=== PATIENT | female | born 1955 | race Caucasian/White ===

== ENCOUNTER 2025-03-29 01:24 | Day surgery (SDC) | payer MEDICARE, MEDICAID, SELFPAY ==
[2025-03-15 15:56] VITALS: BMI 34.5
--- NOTE | 2025-03-15 16:27 | PC.NURSE ---
Spoke with _PATIENT regarding medication _ELIQUIS. PATIENT_verbalizes understanding that the last dose is to be taken on _03/26/2025_ and the Endoscopist will instruct them when to restart after the procedure.
--- OUTSIDE RECORDS SUMMARY | 2025-03-29 01:26 | XMS_ITS ---
Author Organization [facility] Address [address] [place] [address] Care Team Providers Care Diesel Service Apprentice Name Role Phone Blaise Santa MD Primary Care Provider [phone] Mayo Cole MD Unavailable [phone] Dialysis Access Sites Type Status Location Placement Date Removal Da te Hemodialysis Cath Double 09/28/23 Inactive 09/28/2023 05/07/2024 Hemodialysis Cath Triple 09/15/23 Left Internal Jugular Inactive Left Neck (side) - Anterior 09/15/2023 09/30/2023 Procedures Procedure Name Priority Date/Time Associated Diagnosis Comments US TAMMI Schedule Routine, Read Routine (OP Routine) 03/26/2025 11:17 AM CDT Atherosclerosis of [place] arteries of extremities with intermittent claudication, bilateral legs TRANSTHORACIC ECHO (TTE) COMPLETE W DOPPLER/CF WO CONTRAST Routine 03/26/2025 10:10 AM CDT Paroxysmal atrial fibrillation (HCC) EGFR Routine 03/26/2025 9:05 AM CDT Paroxysmal atrial fibrillation (HCC) T4, FREE Routine 03/26/2025 9:05 AM CDT Paroxysmal atrial fibrillation (HCC) DIFFERENTIAL AUTO Routine 03/26/2025 9:0 5 AM CDT Paroxysmal atrial fibrillation (HCC) THYROID FUNCTION CASCADE Routine 03/26/2025 9:05 AM CDT Paroxysmal atrial fibrillation (HCC) CBC WITH AUTO DIFFERENTIAL Routine 03/26/2025 9:05 AM CDT Paroxysmal atrial fibrillation (HCC) BASIC METABOLIC PANEL Routine 03/26/2025 9:05 AM CDT Paroxysmal atrial fibrillation (HCC) HEPATITIS PANEL, ACUTE Routine 09/21/2023 12:52 PM GEOLOGICAL TECHNICAL OFFICER from Last 3 Months or Most Recently Relevant to Health Maintenance Allergies Active Allergy Reactions Criticality Noted Date Comments Atorvastatin Vomiting Low 11/12/2023 Lisinopril Cough Low 06/19/2024 Morphine Nausea & Vomiting Low 07/19/2023 Sulfa (Sulfonamide Antibiotics) Rash Medium Medications acetaminophen (TYLENOL) 325 mg tablet Take 2 tablets (650 mg total) by mouth every 6 (six) hours as needed for fever 30 tablet 05/10/20 24 Active apixaban (ELIQUIS) 5 mg tabletIndicatio ns:cerebral ischemia Take 1 tablet (5 mg total) by mouth 2 (two) times a day 60 tablet 11 07/11/20 24 Active amiodarone (PACERONE) 100 mg tabletIndicatio ns:Cardioversio n of Atrial Fibrillation Take 1 tablet (100 mg total) by mouth 2 (two) times a day 60 tablet 11 10/09/19 25 026 Active benzonatate (TESSALON) 100 mg capsuleIndicati ons:Cough Take 1 capsule (100 mg total) by mouth 3 (three) times a day as needed for cough 20 capsule 1 10/09/19 25 Active rOPINIRole (REQUIP) 0.25 mg tablet Take 1 tablet (0.25 mg total) by mouth nightly 30 tablet 10/09/19 25 026 Active Additional Information Patient not taking.Reported on 03/20/2025 furosemide (LASIX) 40 mg tablet Take 1 tablet (40 mg total) by mouth daily 90 tablet 3 12/13/19 25 Active rosuvastatin (CRESTOR) 40 mg tablet Take 1 tablet (40 mg total) by mouth daily 90 tablet 3 12/14/[address] (PROTONIX) 40 mg EC tabletIndicatio ns:Mucositis Prophylaxis Take 1 tablet (40 mg total) by mouth 2 (two) times a day 180 tablet 3 12/14/19 25 026 Active nitroglycerin (NITROSTAT) 0.[address] 1 tablet (0.4 mg total) under the tongue every 5 (five) minutes as needed for chest pain 24 tablet 1 12/14/19 25 Active metoprolol tartrate (LOPRESSOR) 25 mg immediate release tablet Take 0.5 tablets (12.5 mg total) by mouth 2 (two) times a day 45 tablet 3 12/14/19 25 026 Active losartan (COZAAR) 100 mg tablet Take 1 tablet (100 mg total) by mouth daily 90 tablet 3 12/14/19 25 Active alirocumab 75 mg/mL pen injector Inject 75 mg under the skin every 14 (fourteen) days 2 mL 11 12/14/19 25 Active ezetimibe (ZETIA) 10 mg tablet Take 1 tablet (10 mg total) by mouth daily 90 tablet 3 12/14/19 25 025 Discontinued evolocumab (Repatha SureClick) 140 mg/mL pen injector Inject 1 mL (140 mg total) under the skin every 2 (two) weeks 2 mL 11 01/02/20 25 025 Discontinued Active Problems Patient Care Coordination No te Formatting of this note migh t be different from the original. , and the of the nose to do due to return to 9 going to fail Problem Noted Date Diagnosed Date SOB (shortness of breath) 10/07/2024 PAF (paroxysmal atrial fibrillation) 10/07/2024 Positive D dimer 10/07/2024 Elevated serum creatinine 10/07/2024 Primary hypertension 10/07/2024 Anemia 10/07/2024 RLS (restless legs syndrome) 10/07/2024 Acute cough 10/06/2024 PAD (peripheral artery disease) 09/19/2024 Transient ischemic attack (TIA) 05/08/2024 Chest pain 05/07/2024 H/O aortic valve replacement 11/02/2023 H/O mitral valve replacement 11/02/2023 Hx of CABG 11/02/2023 Mixed hyperlipidemia 11/02/2023 Cardiac decompensation 09/30/2023 Moderate protein-calorie malnutrition 09/29/2023 Persistent atrial fibrillation 09/25/2023 Atherosclerosis of [place] of right lower extremity with rest pain 09/22/2023 BEKAH (acute kidney injury) 09/14/2023 Aortic valve stenosis, etiol ogy of cardiac valve disease unspecified 09/13/2023 Coronary artery disease of n ative heart with stable angina pectoris 08/31/2023 Aortic stenosis, severe 07/22/2023 Coronary artery disease invo lving [place] coronary artery of [place] heart without angina pectoris 07/21/2023 Pulmonary hypertension 07/20/2023 Atrial flutter with rapid ventricular response 1 09/19/2022 Aortic valve stenosis 07/19/2023 Social History Tobacco Use Types Packs/Day Years Used Date Smoking Tobacco: Never Smokeless Tobacco: Never Tobacco Cessation:Counseling Given: Not Answered [facility] Utilities Answer Date Recorded In the past 12 months has [employer], oil, or water Coinset[employer] threatened to shut off services in your home? No 10/09/2024 Social Connection and Isolation Panel Answer Date Recorded In a typical week, how many times do you talk on the phone with family, friends, or neighbors? More than three times a week 10/09/2024 How often do you get togethe r with friends or relatives? More than three times a week 10/09/2024 How often do you attend chur ch or sikh services? Never 10/09/2024 Do you belong to any clubs o r organizations such as hoahaoism groups, unions, fraternal or athletic groups, or school groups? No 10/09/2024 How often do you attend meet ings of the clubs or organizations you belong to? Never 10/09/2024 Are you , , di vorced, , never , or living with a partner? Living with partner 10/09/2024 AUDIT-C Answer Date Recorded Frequency of Alcohol Consumption Not on file 10/07/2024 Q2: How many drinks containi ng alcohol do you have on a typical day when you are drinking? Patient does not drink Frequency of Binge Drinking Not on file 09/17 Overall Financial Resource Strain (CARDIA) Answe r Date Recorded How hard is it for you to pa y for the very basics like food, housing, medical care, and heating? Not hard at all 10/09/2024 PHQ-2 Answer Date Recorded PHQ-2 Total Score (If total score is 3 or more points, staff should administer the PHQ-9) 0 10/06/2024 [facility] Occupat ional [facility] - Occupational Stress Questionnaire Answer Date Recorded Do you feel stress - tense, restless, nervous, or anxious, or unable to sleep at night because your mind is troubled all the time - these days? To some extent 10/01/2023 Hunger Vital Sign Answer Date Recorded Within the past 12 months, y ou worried that your food would run out before you got the money to buy more. Never true 10/09/19 25 Within the past 12 months, t he food you bought just didn't last and you didn't have money to get more. Never true 10/09/2024 PRAPARE - Transportation Answer Date Re corded In the past 12 months, has l ack of transportation kept you from medical appointments or from getting medications? No 09/17 In the past 12 months, has l ack of transportation kept you from meetings, work, or from getting things needed for daily living? No 10/09/2024 Housing Stability Vital Sign Answer Artur e Recorded In the last 12 months, was t here a time when you were not able to pay the mortgage or rent on time? Yes 10/01/2023 In the last 12 months, how many places have you lived? 1 10/01/2023 In the last 12 months, was t here a time when you did not have a steady place to sleep or slept in a detention (including now)? No 10/01/2023 PHQ-9 Answer Date Recorded PHQ-9 Total Score 10 10/06/2024 Housing Stability Vital Sign Answer Artur e Recorded In the last 12 months, was t here a time when you were not able to pay the mortgage or rent on time? No 10/09/2024 In the past 12 months, how m any times have you moved where you were living? 1 10/09/2024 At any time in the past 12 m onths, were you homeless or living in a detention (including now)? No 10/09/2024 Personal Safety Answer Date Recorded Have you ever been in or are you currently in a harmful physical or emotional relationship or is someone making you feel afraid or unsafe? Denies 10/06/2024 Comments No Sex and Gender Information Value Date Recorded Sex Assigned at Not on file Legal Sex Female 7:27 PM GEOLOGICAL TECHNICAL OFFICER Gender Identity Not on file Sexual Orientation Not on file Last Filed Vital Signs Vital Sign Reading Time Taken Comments Blood Pressure 126/80 03/20/2025 2:51 PM CDT Pulse 59 03/20/2025 2:51 PM CDT Temperature 36.7 C (98.1 F) 10/09/2024 12:06 PM GEOLOGICAL TECHNICAL OFFICER Respiratory Rate 12 03/20/2025 2:51 PM CDT Oxygen Saturation 94% 10/09/2024 12: 06 PM GEOLOGICAL TECHNICAL OFFICER Inhaled Oxygen Concentration - - Weight 100.6 kg (221 lb 12.8 oz) 03/20/2025 2:51 PM CDT Height 170.2 cm (5' 7) 03/20/2025 2:51 PM CDT Body Mass Index 34.74 03/20/2025 2:51 PM CDT Results * US TAMMI (03/26/2025 11:17 AM CDT) Anatomical Region Laterality Modality Vascular N/A Ultrasound 03/26/2025 11:0 1 AM CDT Narrative 03/26/2025 1:23 PM CDT [address] [address] Ankle Brachial Index Report Patient Name: MILA ROSARIO : 1955 (69y 9m) Gender: F Study Date: 03/26/2025 11:01:00 [facility] Administrator: Daniela Provider: KEVIN TAYLOR Quality: Adequate Ref Provider: KEVIN TAYLOR PROCEDURES: Arterial Report: A bilateral extremities ankle/brachial index was performed. INDICATIONS: I70.213 Atherosclerosis of [place] arteries of extremities with intermittent claudication, bilateral legs. CONCLUSIONS: 1. No Arterial insufficiency at rest in either lower extremity with ankle- brachial index of 1.15 on the right and 1.04 on the left. 2. Biphasic to triphasic waveform at the ankle bilaterally. FINDINGS: Electronically Signed By: Kevin Taylor MD 03/26/2025 1:18:59 PM CDT Procedure Note Kevin Taylor MD - 03/26/[address] [address] Ankle Brachial Index Report Patient Name: MILA ROSARIO : 1955 (69y 9m) Gender: F Study Date: 03/26/2025 11:01:00 AM [facility] Administrator: Daniela Provider: KEVIN TAYLOR Quality: Adequate Ref Provider: KEVIN TAYLOR PROCEDURES: Arterial Report: A bilateral extremities ankle/brachial index wasperformed. INDICATIONS: I70.213 Atherosclerosis of [place] arteries of extremities withintermittent claudication, bilateral legs. CONCLUSIONS: 1. No Arterial insufficiency at rest in either lower extremity withankle- brachial index of 1.15 on the right and 1.04 on the left. 2. Biphasic to triphasic waveform at the ankle bilaterally. FINDINGS: Electronically Signed By: Kevin Taylor MD 03/26/2025 1:18:59 PM CDT us Kevin Taylor MD IMG US PROCEDURES Final Result * TRANSTHORACIC ECHO (TTE) COMPLETE W DOPPLER/CF WO CONTRAST (03/26/2025 10:10 AM CDT) Estimated EF 60-65 % CONS SCIMAGE Anatomical Region Laterality Modality Ultrasound 03/26/2025 9:43 AM CDT Narrative 03/26/2025 2:24 PM CDT [address] [address] Echocardiogram Report Patient Name: MILA ROSARIO : 1955 Study Date: 03/26/2025 9:43:25 AM Gender: F Tech: AA Location: echo room 2 Ref Provider: KEVIN TAYLOR Height(Cm): BSA: Weight(Kg): Quality: Good Order Provider: KEVIN TAYLOR PROCEDURES: Echocardiographic Report: Transthoracic echocardiogram with complete 2D, M-Mode, and color Doppler examination. INDICATIONS: afib, 23mm inspiris avreplace, 29mm epic porcine mvreplace and I48.0 Paroxysmal atrial fibrillation. MEASUREMENTS: 2D/MM Value Range Doppler Value Range Estimated EF 60-65 % MARTA Vmax 2.64 cm2 AV Mean PG 11 mmHg AV Peak Dave 2.19 m/s [ 1.00 - 1.70 ] AV VTI 41.83 cm LVOT Diam 2.29 cm LVOT Peak Dave 1.41 m/s [ 0.70 - 1.10 ] LVOT VTI 30.52 cm MV E Peak Dave 1.40 m/s [ 0.60 - 1.30 ] MV A Peak Dave 1.31 m/s [ 1.00 - 1.20 ] MV Mean PG 4 mmHg MV PHT 110 msec [ 20 - 100 ] MVA 1.80 MV Decel Time 379 msec [ 104 - 258 ] PV Peak Dave 0.94 m/s [ 0.40 - 0.80 ] TR Peak Dave 2.45 m/s [ 1.00 - 2.80 ] TR Peak PG 24 mmHg RVSP 29.00 mmHg [ 10.00 - 36.00 ] E` 0.02 m/s E/E` 57.58 [ <= 10.00 ] PA Pressure 5.00 mmHg [ 10.00 - 36.00 ] 2D/MM Value Range Doppler Value Range - FINDINGS: Atrial Septum: Normal atrial septum. Left Ventricle: Normal left ventricular systolic function with no focal wall motion abnormalities. Normal left ventricular size. Mild concentric left ventricular hypertrophy. Normal left ventricular diastolic function. Ejection Fraction is estimated to be 60-65 %. Left Atrium: There is mild enlargement of left atrium. Right Ventricle: Normal right ventricular size. Normal right ventricular systolic function. Right Atrium: The right atrium is normal in size. Aortic Valve: No evidence of hemodynamically significant aortic stenosis by Doppler. Gradients normal for valve type and size. Normal appearing aortic valve bioprosthesis. Mitral Valve: Trivial regurgitation of the mitral valve. Normal appearing mitral valve prosthesis for valve type and size. Normal gradients for valve type and size. Pulmonic Valve: Pulmonic valve not well visualized. No evidence of pulmonic regurgitation. Tricuspid Valve: Normal structure of the tricuspid valve. Moderate pulmonary hypertension based on right ventricular systolic pressure. Estimated peak RVSP is 57 mmHg. Mild tricuspid regurgitation. Pericardium: Normal pericardium with no significant pericardial effusion. Aorta: Normal aortic root. Sinus of Valsalva is normal. Aortic arch is normal. Descending aorta is normal. IVC: Normal size and normal respiratory collapse consistent with normal right atrial pressure (<5 mmHg). Pulmonary Artery: Pulmonary artery not well visualized. CONCLUSIONS: Normal left ventricular systolic function with no focal wall motion abnormalities. Normal left ventricular size. Mild concentric left ventricular hypertrophy. Normal left ventricular diastolic function. Ejection Fraction is estimated to be 60-65 %. Normal right ventricular size. Normal right ventricular systolic function. There is mild enlargement of left atrium. Trivial regurgitation of the mitral valve. Normal appearing mitral valve prosthesis for valve type and size. Normal gradients for valve type and size. No evidence of hemodynamically significant aortic stenosis by Doppler. Gradients normal for valve type and size. Normal appearing aortic valve bioprosthesis. Normal structure of the tricuspid valve. Moderate pulmonary hypertension based on right ventricular systolic pressure. Estimated peak RVSP is 57 mmHg. Mild tricuspid regurgitation. Normal pericardium with no significant pericardial effusion. Technically difficult study with limited views and visualization. Valves in general are very poorly visualized. Electronically Signed By: Riri Ayala MD 03/26/2025 2:24:16 PM CDT Procedure Note Riri Ayala MD - 03/26/[address] [address] Echocardiogram Report Patient Name: MILA ROSARIO : 1955 Study Date: 03/26/2025 9:43:25 AM Gender: F Tech: Location: echo room 2 Ref Provider: KEVIN TAYLOR Height(Cm): BSA: Weight(Kg): Quality: Good Order Provider: KEVIN TAYLOR PROCEDURES: Echocardiographic Report: Transthoracic echocardiogram with complete 2D, M-Mode, and color Dopplerexamination. INDICATIONS: afib, 23mm inspiris avreplace, 29mm epic porcine mvreplace and I48.0Paroxysmal atrial fibrillation. MEASUREMENTS: 2D/MM Value Range Doppler Value Range Estimated EF 60-65 % MARTA Vmax 2.64 cm2 AV Mean PG 11 mmHg AV Peak Dave 2.19 m/s [ 1.00 - 1.70 ] AV VTI 41.83 cm LVOT Diam 2.29 cm LVOT Peak Dave 1.41 m/s [ 0.70 - 1.10 ] LVOT VTI 30.52 cm MV E Peak Dave 1.40 m/s [ 0.60 - 1.30 ] MV A Peak Dave 1.31 m/s [ 1.00 - 1.20 ] MV Mean PG 4 mmHg MV PHT 110 msec [ 20 - 100 ] MVA 1.80 MV Decel Time 379 msec [ 104 - 258 ] PV Peak Dave 0.94 m/s [ 0.40 - 0.80 ] TR Peak Dave 2.45 m/s [ 1.00 - 2.80 ] TR Peak PG 24 mmHg RVSP 29.00 mmHg [ 10.00 - 36.00 ] E` 0.02 m/s E/E` 57.58 [ <= 10.00 ] PA Pressure 5.00 mmHg [ 10.00 - 36.00 ] 2D/MM Value Range Doppler Value Range - FINDINGS: Atrial Septum: Normal atrial septum. Left Ventricle: Normal left ventricular systolic function with no focal wall motionabnormalities. Normal left ventricular size. Mild concentric left ventricular hypertrophy.Normal left ventricular diastolic function. Ejection Fraction is estimated to be 60-65%. Left Atrium: There is mild enlargement of left atrium. Right Ventricle: Normal right ventricular size. Normal right ventricular systolicfunction. Right Atrium: The right atrium is normal in size. Aortic Valve: No evidence of hemodynamically significant aortic stenosis by Doppler.Gradients normal for valve type and size. Normal appearing aortic valve bioprosthesis. Mitral Valve: Trivial regurgitation of the mitral valve. Normal appearing mitral valveprosthesis for valve type and size. Normal gradients for valve type and size. Pulmonic Valve: Pulmonic valve not well visualized. No evidence of pulmonicregurgitation. Tricuspid Valve: Normal structure of the tricuspid valve. Moderate pulmonary hypertensionbased on right ventricular systolic pressure. Estimated peak RVSP is 57 mmHg. Mildtricuspid regurgitation. Pericardium: Normal pericardium with no significant pericardial effusion. Aorta: Normal aortic root. Sinus of Valsalva is normal. Aortic arch is normal.Descending aorta is normal. IVC: Normal size and normal respiratory collapse consistent with normal rightatrial pressure (<5 mmHg). Pulmonary Artery: Pulmonary artery not well visualized. CONCLUSIONS: Normal left ventricular systolic function with no focal wall motionabnormalities. Normal left ventricular size. Mild concentric left ventricular hypertrophy.Normal left ventricular diastolic function. Ejection Fraction is estimated to be 60-65%. Normal right ventricular size. Normal right ventricular systolicfunction. There is mild enlargement of left atrium. Trivial regurgitation of the mitral valve. Normal appearing mitral valveprosthesis for valve type and size. Normal gradients for valve type and size. No evidence of hemodynamically significant aortic stenosis by Doppler.Gradients normal for valve type and size. Normal appearing aortic valve bioprosthesis. Normal structure of the tricuspid valve. Moderate pulmonary hypertensionbased on right ventricular systolic pressure. Estimated peak RVSP is 57 mmHg. Mildtricuspid regurgitation. Normal pericardium with no significant pericardial effusion. Technically difficult study with limited views and visualization. Valvesin general are very poorly visualized. Electronically Signed By: Riri Ayala MD 03/26/2025 2:24:16 PM CDT us Kevin Taylor MD CV ECHO PROCEDURES Final Result * (ABNORMAL) eGFR (03/26/2025 9:05 AM CDT) eGFR 41(L) >=60 mL/min/1. 73 m2 Comment: Interpretive Data Reference Interval Normal >/= 90 mL/min/1.73m2 Mildly decreased* 60 - 89 mL/min/1.73m2 Mildly to moderately decreased 45 - 59 mL/min/1.73m2 Moderately to severely decreased 30 - 44 mL/min/1.73m2 Severely decreased 15 - 29 mL/min/1.73m2 Kidney Failure < 15 mL/min/1.73m2 *Relative to young adult level Estimated glomerular filtration rate is determined by the 2020 CKD-EPI equation recommended by the National Kidney Foundation (A Unifying Approach to GFR Estimation: Recommendations of the NKF-ASK Task Force on Reassessing the Inclusion of Race in Diagnosing Kidney Disease, JASN 202). The CKD-EPI equation should not be used for patients with unstable renal function and has not been validated in children and those over 70. Current interpretive data was last reviewed 2021. Blood 03/26/2025 9:05 AM CDT 03/26/2025 9:50 AM CDT us Alva Juana Datillo HAND II CUTTER LAB BLOOD ORDERABLES Fi nal Result [facility] ([place]) 1 [facility] Department [place] [address] * Differential, auto (03/26/2025 9:05 AM CDT) Neutrophil abs 5.10 1.50 - 6.50 K/cumm Imm gran abs 0.02 0.00 - 0.10 K/cumm [facility] ([place]) Lymphocyte abs 1.40 0.80 - 3.30 K/cumm [facility] ([place]) Monocyte abs 0.59 0.20 - 0.80 K/cumm [facility] ([place]) Eosinophil abs 0.09 0.00 - 0.50 K/cumm [facility] ([place]) Basophil abs 0.05 0.00 - 0.10 K/cumm [facility] ([place]) Neutrophil pct 70.4 % [facility] ([place]) Comment: Interpretive Data Percent cell count reference ranges are not reported, since discordance with absolute values may lead to misinterpretation of CBC data. Current Interpretive Data was last revised on 2017. Imm gran pct 0.3 % [facility] ([place]) Comment: Interpretive Data Percent cell count reference ranges are not reported, since discordance with absolute values may lead to misinterpretation of CBC data. Current Interpretive Data was last revised on 2017. Lymphocyte pct 19.3 % [facility] ([place]) Comment: Interpretive Data Percent cell count reference ranges are not reported, since discordance with absolute values may lead to misinterpretation of CBC data. Current Interpretive Data was last revised on 2017. Monocyte pct 8.1 % [facility] ([place]) Comment: Interpretive Data Percent cell count reference ranges are not reported, since discordance with absolute values may lead to misinterpretation of CBC data. Current Interpretive Data was last revised on 2017. Eosinophil pct 1.2 % [facility] ([place]) Comment: Interpretive Data Percent cell count reference ranges are not reported, since discordance with absolute values may lead to misinterpretation of CBC data. Current Interpretive Data was last revised on 2017. Basophil pct 0.7 % [facility] ([place]) Comment: Interpretive Data Percent cell count reference ranges are not reported, since discordance with absolute values may lead to misinterpretation of CBC data. Current Interpretive Data was last revised on 2017. Blood 03/26/2025 9:05 AM CDT 03/26/2025 9:31 AM CDT Alva Paul HAND II CUTTER LAB BLOOD ORDERABLES Fi nal Result Performing Organization Address City/[facility]/ZIP Co de Phone Number [facility] ([place]) 1 [facility] [place] [address] * (ABNORMAL) Thyroid Function Emery (03/26/2025 9:05 AM CDT) Pathologist [facility] TSH 4.59(H) 0.30 - 4.20 mcIUnit/mL [facility] ([place]) Blood 03/26/2025 9:05 AM CDT 03/26/2025 9:50 AM CDT Alva Paul HAND II CUTTER LAB BLOOD ORDERABLES Fi nal Result Performing Organization Address City/[facility] Co de Phone Number [facility] ([place]) 1 [facility] [place] [address] * CBC with auto differential (03/26/2025 9:05 AM CDT) Pathologist [facility] WBC 7.25 3.80 - 9.90 K/cumm Hgb 12.8 11.9 - 15.5 g/dL [facility] ([place]) Hct 39.5 35.6 - 45.5 % [facility] ([place]) Plt 164 150 - 400 K/cumm [facility] ([place]) MPV 11.4 9.1 - 12.3 fL [facility] ([place]) RBC 4.47 3.90 - 5.20 M/cumm [facility] ([place]) MCV 88.4 81.3 - 96.4 fL [facility] ([place]) MCH 28.6 27.1 - 33.3 pg [facility] ([place]) MCHC 32.4 32.3 - 35.7 g/dL [facility] ([place]) RDW CV 14.6 11.1 - 14.9 % [facility] ([place]) RDW SD 47.0 35.7 - 48.1 fL [facility] ([place]) NRBC abs 0.00 0.00 - 0.01 K/cumm [facility] ([place]) Blood 03/26/2025 9:05 AM CDT 03/26/2025 9:31 AM CDT Alva Paul HAND II CUTTER LAB BLOOD ORDERABLES Fi nal Result [facility] ([place]) 1 [facility] [place] [address] * T4, free (03/26/2025 9:05 AM CDT) Free T4 1.46 0.90 - 1.70 ng/dL [facility] ([place]) Blood 03/26/2025 9:05 AM CDT 03/26/2025 9:50 AM CDT Narrative [facility] ([place]) - 03/26/2025 11:17 AM CDT This test was reflexed from a TSH result. Alva Paul HAND II CUTTER LAB BLOOD ORDERABLES Fi nal Result [facility] ([place] [facility] [place] [address] * (ABNORMAL) Basic metabolic panel (03/26/2025 9:05 AM CDT) Sodium 141 135 - 145 mmol/L [facility] ([place] Potassium, pl 3.5 3.3 - 4.9 mmol/L [facility] Chloride 101 97 - 110 mmol/L [facility] ([place] CO2 26 22 - 32 mmol/L [facility] ([place]) Anion gap 14 2 - 15 mmol/L [facility] ([place]) BUN 19 6 - 25 mg/dL [facility] ([place]) Creatinine 1.39(H) 0.60 - 1.10 mg/dL [facility] ([place]) Glucose 83 70 - 199 mg/dL [facility] ([place]) Comment: Interpretive Data Fasting glucose >/= 126 mg/dl is diagnostic for diabetes. Fasting is defined as no caloric intake for at least 8 hours. Fasting glucose between 100 mg/dl to 125 mg/dl is diagnostic of prediabetes. In a patient with classic symptoms of hyperglycemia or hyperglycemic crisis, a random glucose >/= 200 mg/dl is diagnostic for diabetes. In the absence of unequivocal hyperglycemia, results should be confirmed by repeat testing. The classification and Diagnosis of Diabetes Diabetes Care 202; 46: S19-S40. Current interpretive data was last revised 2022. Calcium 9.7 8.5 - 10.3 mg/dL [facility] ([place]) Blood 03/26/2025 9:05 AM CDT 03/26/2025 9:50 AM CDT Alva Paul NP LAB BLOOD ORDERABLES nal Result [facility] ([place]) 1 [facility] Department [place] [address] * Hepatitis panel, acute Blood (09/21/2023 12:52 PM GEOLOGICAL TECHNICAL OFFICER) Hep A IgM Nonreactive Nonreactive [facility] Comment: Interpretive Data: If Hep A IgM Ab is reported as Equivocal, a new sample should be drawn in two weeks for testing. Current interpretive data was last revised on 19. Hep B core IgM Nonreactive Nonreactive [facility] Comment: Interpretive Data If HepB Core IgM Ab is reported as Equivocal, a new sample should be drawn in two weeks for testing. Current interpretive data was last revised on 19. Hep C Ab Nonreactive Nonreactive [facility] Comment: Interpretive Data Nonreactive: Antibodies to HCV not detected. Does NOT exclude the possibility of recent exposure to HCV. Equivocal: Equivocal for HCV antibodies. Supplemental molecular testing will be automatically performed to determine infection status in accordance with current CDC screening recommendations. Reactive: Positive for HCV antibodies. This may represent current or past HCV infection. Supplemental molecular testing will be automatically performed to determine current infection status in accordance with current CDC screening recommendations. Interpretive data was last revised on 2019. HepBsAg Nonreactive Nonreactive [facility] Blood 09/21/2023 12:5 2 PM GEOLOGICAL TECHNICAL OFFICER 09/21/2023 12:59 PM GEOLOGICAL TECHNICAL OFFICER Fred Warren MD LAB MICROBIOLOGY - GENERAL [facility]ERE[facility] Final Result [facility] [id number] [place] [address] from Last 3 Months or Most Recently Relevant to Health Maintenance
--- OUTSIDE RECORDS SUMMARY | 2025-03-29 01:26 | XMS_ITS | Encounter Summary ---
Author Organization [facility] Healthcare Address [address] [place] [address] Care Team Providers Care Crew Manager Name Role Phone Blaise Santa MD Primary Care Provider [phone] Mayo Cole MD Unavailable [phone] Encounter Details Date Type Department Care Team (Late st Contact Info) Description 03/26/2025 Results Follow-Up [place] Aquarium Specialist at [address] [place] [phone] Ketty Alvarez YaniraDODGE, MA US TAMMI Social History Tobacco Use Types Packs/Day Years Used Date Smoking Tobacco: Never Smokeless Tobacco: Never [facility] Utilities Answer Date Recorded In the past 12 months has [employer], gas, oil, or water [employer] threatened to shut off services in your [...] often do you attend chur ch or yazdanism services? Never 10/09/2024 Do you belong to [...] staff should administer the PHQ-9) 0 10/06/2024 [facility] Occupat ional [facility] - Occupational Stress Questionnaire Answer Date [...] place to sleep or slept in a skilled nursing (including now)? No 10/01/2023 PHQ-9 Answer Date [...] any time in the past 12 m [facility], were you homeless or living in a skilled nursing (including now)? No 10/09/2024 Personal Safety Answer Date Recorded Have you ever been in or are you currently in a harmful physical or emotional relationship or is someone making you feel afraid or unsafe? Denies 10/06/2024 Comments No Sex and Gender Information Value Date Recorded Sex Assigned at Not on file Legal Sex Female 7:27 PM PATIENT RELATIONS COORDINATOR Gender Identity Not on file Sexual Orientation Not on file documented as of this encounter Plan of Treatment Not on file documented as of this encounter Visit Diagnoses Not on filedocumented in this encounter Care Teams Crew Manager Relationship Specialty [place] [address] [place] [address] PCP - General Family Medicine 11/02/23 [place] [address] [place] [address] Surgeon Cardiothoracic Surgery 10/09/24 documented as of this encounter
--- OUTSIDE RECORDS SUMMARY | 2025-03-29 01:26 | XMS_ITS | Clinical Summary ---
Author Organization [facility] Address [address] [place] [address] Care Team Providers Care Boilermaker Loftsman Name Role Phone Blaise Santa MD Primary Care Provider [phone] Mayo Cole MD Unavailable [phone] Allergies Active Allergy Reactions Criticality Noted Date [...] skin every 2 (two) weeks 2 mL 01/02/20 25 025 Discontinued Active Problems Patient [...] 09/29/2023 Persistent atrial fibrillation 09/25/2023 Atherosclerosis of andreafski ar antony of right lower extremity with rest pain 09/22/2023 BEKAH (acute kidney injury) 09/14/2023 Aortic valve stenosis, etiol ogy of cardiac valve disease unspecified 09/13/2023 Coronary artery disease of n ative heart with stable angina pectoris 08/31/2023 Aortic stenosis, severe 07/22/2023 Coronary artery disease invo lving andreafski coronary artery of andreafski heart without angina pectoris 07/21/2023 Pulmonary hypertension 07/20/2023 Atrial flutter with rapid ventricular response 1 09/19/2022 Aortic valve stenosis 07/19/2023 Encounters Date Type Department Care Team Description 03/26/2025 9:00 AM CDT Lab [address] [address] Paroxysmal atrial fibrillation (HCC) 03/26/2025 8:53 AM CDT - 03/26/2025 11:59 PM CDT Hospital Encounter [facility] [address] [place] [address] [facility] Atherosclerosis of andreafski arteries of extremities with intermittent claudication, bilateral legs Discharge Disposition: Discharge to home or self care 03/26/2025 8:53 AM CDT - 03/26/2025 11:59 PM CDT Hospital Encounter [facility] 1 [place] [address] Paroxysmal atrial fibrillation (HCC) Discharge Disposition: Discharge to home or self care 03/26/2025 Results Follow-Up [place] Journeyman Level Acoustic Analyst at [address] [place] [phone] Ketty Alvarez MA TAMMI 03/20/2025 2:00 PM CDT Office Visit [place] [facility]st at [address] [place] [address] Alva Paul NP Paroxysmal atrial fibrillation (HCC) (Primary Dx); Hx of CABG; H/O mitral valve replacement; H/O aortic valve replacement; Mixed hyperlipidemia 01/11/2025 Telephone [facility] Specialty Services [address] [place] [phone] Miscellaneous, Not In File from Last 3 Months Surgical History Surgery Date Site/Laterality Comments CYST REMOVAL Left wrist PARTIAL HYSTERECTOMY TUNNELED LINE PLACEMENT > 5 YEARS 09/28/2023 N/A CORONARY ARTERY BYPASS GRAFT AORTIC VALVE REPLACEMENT MITRAL VALVE REPLACEMENT Medical History Medical History Date Comments Pulmonary hypertension (HCC) Atrial flutter (HCC) Aortic stenosis PONV (postoperative nausea and vomiting) CHF (congestive heart failure) (HCC) Hypertension Stroke (HCC) A-fib (HCC) Coronary artery disease Family History Medical History Relation Name Comments No Known Problems Other Relation Name Status Comments Other Social History Tobacco Use Types Packs/Day Years Used Date Smoking Tobacco: Never Smokeless Tobacco: Never Tobacco Cessation:Counseling Given: Not Answered [place] Utilities Answer Date Recorded In the past 12 months has [employer], gas, oil, or water [employer] threatened to shut off services in your [...] often do you attend chur ch or buddhist services? Never 10/09/2024 Do you belong to any clubs o r organizations such as zoroastrian groups, unions, fraternal or athletic groups, or [...] staff should administer the PHQ-9) 0 10/06/2024 [facility] Occupat [facility] - Occupational Stress Questionnaire Answer Date [...] place to sleep or slept in a nursing home (including now)? No 10/01/2023 PHQ-9 Answer Date [...] any time in the past [address] [facility], were you homeless or living in a nursing home (including now)? No 10/09/2024 Personal Safety Answer Date Recorded Have you ever been in or are you currently in a harmful physical or emotional relationship or is someone making you feel afraid or unsafe? Denies 10/06/2024 Comments No Sex and Gender Information Value Date Recorded Sex Assigned at Not on file Legal Sex Female 7:27 PM STITCH BONDER MACHINE OPERATOR HELPER Gender Identity Not on file Sexual Orientation Not on file Obstetrics History Last Filed Vital Signs Vital Sign Reading Time Taken Comments Blood Pressure 126/80 03/20/2025 2:51 PM CDT Pulse 59 03/20/2025 2:51 PM CDT Temperature 36.7 C (98.1 F) 10/09/2024 12:06 PM STITCH BONDER MACHINE OPERATOR HELPER Respiratory Rate 12 03/20/2025 2:51 PM CDT Oxygen Saturation 94% 10/09/2024 12: 06 PM STITCH BONDER MACHINE OPERATOR HELPER Inhaled Oxygen Concentration - - Weight 100.6 kg (221 lb 12.8 oz) 03/20/2025 2:51 PM CDT Height 170.2 cm (5' 7) 03/20/2025 2:51 PM CDT Body Mass Index 34.74 03/20/2025 2:51 PM CDT Plan of Treatment Health Maintenance Due Date Last Done Comments Breast Cancer Screening-Mammogram 1955 Colon Cancer Screening-Colonoscopy 1955 Osteoporosis Screening-Bone Density Scan 1955 DTaP/Tdap/Td Vaccine (1 - Tdap) 1967 Pneumococcal vaccine 65+ (1 of 2 - PCV) 1975 Zoster Vaccine (1 of 2) 2006 Well Visit 65+ 2021 Covid-19 Vaccine (5 - 2023-2 5 season) 2024 07/01/2022, 08/27/2021, 09/18/2020, Additional history exists Influenza Vaccine (#1) 2025 Depression Screening 10/06/2025 10/06/2024, 10/06/2024, 05/07/2024, Additional history exists Fall Risk Assessment 10/09/2025 10/09/2024 Hepatitis B Screening Completed 09/21/2023 Hepatitis C Screening Completed 09/21/2023 , 07/22/2023, 12/07/2013 Medical Devices Implanted Type Area Epic Cadence Specialists Device Identifier Shelf Expiration Date Model / Serial / Lot Atricure Device Closure Atriclip Nitinol Polyester 45 D L35mm L6cm Flexible Shaft Plunger Hand Stapler Left Atrial Appendage Exclusion System [id number] - [id number] Implanted:Qty: 1 on 09/13/2023 by Mayo Cole MD at [facility] N/A: Heart Atricure 02/13/2026 [id number] / / [employer] Valve Mitral Tissue Stented Epic Plus 29mm [id number]-[id number] - [id number] - [id number] Implanted:Qty: 1 on 09/13/2023 by Mayo Cole MD at [facility] N/A: Heart [employer] 02/16/2027 [id number] / [id number] / [employer] Inspiris Resilia Leaflet Aortic Valve 23mm [id number] - [id number] - [id number] Implanted:Qty: 1 on 09/13/2023 by Mayo Cole MD at [facility] N/A: Heart [employer] 03/24/2027 [id number] / [id number] / [place] [employer] Anitha Stent Drug Eluting S Megatron Us Mr 3.01y50be [id number] - [id number] Implanted:Qty: 1 on 09/22/2023 by Kevin Taylor MD at [facility] Deenty Anitha 04/20/2025 [id number] / / [id number] Fahrenheit Angio-Seal Vip 6fr Closere Device [id number] - [id number] Implanted:Qty: 1 on 09/22/2023 by Kevin Taylor MD at [facility] MyAppConverter [id number] / / [employer] Duramax Vascpak Safesheath D-Pro 15.5fr 28cm Kit Catheter [id number] - [id number] Implanted:Qty: 1 on 09/28/2023 at [facility] 12/13/2025 [id number] / / [id number] Procedures Procedure Name Priority Date/Time Associated Diagnosis Comments US TAMMI Schedule Routine, Read Routine (OP Routine) 03/26/2025 11:17 AM CDT Atherosclerosis of andreafski arteries of extremities with intermittent claudication, bilateral [...] HEPATITIS PANEL, ACUTE Routine 09/21/2023 12:52 PM STITCH BONDER MACHINE OPERATOR HELPER from Last 3 Months or Most Recently Relevant to Health Maintenance Results * US TAMMI (03/26/2025 11:17 AM CDT) Anatomical Region Laterality Modality Vascular N/A Ultrasound 03/26/2025 11:0 1 AM CDT Narrative 03/26/2025 1:23 PM CDT [address] [address] Ankle Brachial Index Report Patient Name: MILA ROSARIO : 1955 (69y 9m) Gender: F Study Date: 03/26/2025 11:01:00 AM Cafeteria Cashier: Order Provider: KEVIN TAYLOR Quality: Adequate Ref Provider: KEVIN TAYLOR PROCEDURES: Arterial Report: A bilateral extremities ankle/brachial index was performed. INDICATIONS: I70.213 Atherosclerosis of andreafski arteries of extremities with intermittent claudication, bilateral legs. CONCLUSIONS: 1. No Arterial insufficiency at rest in either lower extremity with ankle- brachial index of 1.15 on the right and 1.04 on the left. 2. Biphasic to triphasic waveform at the ankle bilaterally. FINDINGS: Electronically Signed By: Kevin Taylor MD 03/26/2025 1:18:59 PM CDT Procedure Note Kevin Taylor MD - 03/26/2025 [place] [address] Ankle Brachial Index Report Patient Name: MILA ROSARIO : 1955 (69y 9m) Gender: F Study Date: 03/26/2025 11:01:00 AM Cafeteria Cashier: Order Provider: KEVIN TAYLOR Quality: Adequate Ref Provider: KEVIN TAYLOR PROCEDURES: Arterial Report: A bilateral extremities ankle/brachial index wasperformed. INDICATIONS: I70.213 Atherosclerosis of andreafski arteries of extremities withintermittent claudication, bilateral legs. [...] AM CDT Narrative 03/26/2025 2:24 PM CDT [address] [address] Echocardiogram Report Patient Name: MILA ROSARIO : [...] Procedure Note Riri Ayala MD - 03/26/[address] [address] Echocardiogram Report Patient Name: MILA ROSARIO : [...] of Race in Diagnosing Kidney Disease, JASN 2020). The CKD-EPI equation should not be used for patients with unstable renal function and has not been validated in children and those over 70. Current interpretive data was last reviewed 2021. Blood 03/26/2025 9:05 AM CDT 03/26/2025 9:50 AM CDT us Alva Paul NP LAB BLOOD ORDERABLES nal Result [facility] ([place]) 1 [facility] Department [place] [address] * Differential, auto (03/26/2025 9:05 AM CDT) Neutrophil abs 5.10 1.50 - 6.50 K/cumm Imm gran abs 0.02 0.00 - 0.10 K/cumm [facility] ([place]) Lymphocyte abs 1.40 0.80 - 3.30 K/cumm [facility] ([place]) Monocyte abs 0.59 0.20 - 0.80 K/cumm [facility] ([place]) Eosinophil abs 0.09 0.00 - 0.50 K/cumm [facility] ([place]) Basophil abs 0.05 0.00 - 0.10 K/cumm [facility] ([place]) Neutrophil pct 70.4 % [facility] ([place]) Comment: Interpretive [...] AM CDT 03/26/2025 9:31 AM CDT Alva Juana Paul WORK DISTRIBUTOR LAB BLOOD ORDERABLES Fi nal Result Performing Organization Address City/[facility]/ZIP Co de Phone Number [facility] ([place]) 1 [facility] [place] [address] * (ABNORMAL) Thyroid Function [place] (03/26/2025 9:05 AM CDT) TSH 4.59(H) 0.30 - 4.20 mcIUnit/mL [facility] ([place]) Blood 03/26/2025 9:05 AM CDT 03/26/2025 9:50 AM CDT Alva Paul WORK DISTRIBUTOR LAB BLOOD ORDERABLES Fi nal Result [facility] ([place]) 1 [facility] [place] [address] * CBC with auto differential (03/26/2025 9:05 AM CDT) WBC 7.25 3.80 - 9.90 K/cumm Hgb [...] ([place]) MCHC 32.4 32.3 - 35.7 g/dL [facility] ([place]) RDW CV 14.6 11.1 - 14.9 % [facility] ([place]) RDW SD 47.0 35.7 - 48.1 fL [facility] ([place]) NRBC abs 0.00 0.00 - 0.01 K/cumm [facility] ([place]) Blood 03/26/2025 9:05 AM CDT 03/26/2025 9:31 AM CDT us Alva Paul WORK DISTRIBUTOR LAB BLOOD ORDERABLES Fi nal Result Performing Organization Address City/[facility]/ZIP Co de Phone Number [facility] ([place]) 1 [facility] [place] [address] * T4, free (03/26/2025 9:05 AM CDT) Free T4 1.46 0.90 - 1.70 ng/dL [facility] ([place]) Blood 03/26/2025 9:05 AM CDT 03/26/2025 9:50 AM CDT Narrative [facility] ([place]) - 03/26/2025 11:17 AM CDT This test was reflexed from a TSH result. us Alva Paul WORK DISTRIBUTOR LAB BLOOD ORDERABLES Fi nal Result [facility] ([place]) 1 [facility] [place] [address] * (ABNORMAL) Basic metabolic panel (03/26/2025 9:05 AM CDT) Sodium 141 135 - 145 mmol/L [facility] ([place]) Potassium, pl 3.5 3.3 - 4.9 mmol/L [facility] ([place]) Chloride 101 97 - 110 mmol/L [facility]) CO2 26 22 - 32 mmol/L [facility] ([place] Anion gap 14 2 - 15 mmol/L [facility] ([place]) BUN 19 6 - 25 mg/dL [facility] ([place]) Creatinine 1.39(H) 0.60 - 1.10 mg/dL [facility] ([place]) Glucose 83 70 - 199 mg/dL [facility] ([place]) Comment: Interpretive Data Fasting glucose >/= [...] classification and Diagnosis of Diabetes Diabetes Care 2021; 46: S19-S40. Current interpretive data was last revised 2022. Calcium 9.7 8.5 - 10.3 mg/dL [facility] ([place]) Blood 03/26/2025 9:05 AM CDT 03/26/2025 9:50 AM CDT Alva Paul WORK DISTRIBUTOR LAB BLOOD ORDERABLES Fi nal Result [facility] ([place]) 1 [facility] Department [place] [address] * Hepatitis panel, acute Blood (09/21/2023 12:52 PM STITCH BONDER MACHINE OPERATOR HELPER) Hep A IgM Nonreactive Nonreactive [facility] Comment: Interpretive Data: If Hep A IgM Ab is reported as Equivocal, a new sample should be drawn in two weeks for testing. Current interpretive data was last revised on 19. Hep B core IgM Nonreactive Nonreactive [facility] Comment: Interpretive Data If HepB Core IgM Ab is reported as Equivocal, a new sample should be drawn in two weeks for testing. Current interpretive data was last revised on 19. Hep C Ab Nonreactive Nonreactive [facility] Comment: Interpretive Data Nonreactive: Antibodies to HCV [...] last revised on 2019. HepBsAg Nonreactive Nonreactive [facility] Blood 09/21/2023 12:5 2 PM STITCH BONDER MACHINE OPERATOR HELPER 09/21/2023 12:59 PM STITCH BONDER MACHINE OPERATOR HELPER Fred Warren MD LAB MICROBIOLOGY - [facility] DANITA PEREA Final Result [facility] [address] [address] Department of Laboratories [place] [phone] from Last 3 Months or Most Recently Relevant to Health Maintenance Insurance [facility] MEDICARE ADVANTAGE [facility] MEDIC[facility] ADVANTAGE Advance Directives For more information, please contact: [phone] * Full Code (Latest Code Status on File) Date Activated Date Inactivated Comments 10/06/2024 11:56 PM 10/09/2024 6:30 PM * Full Code Date Activated Date Inactivated Comments 05/07/2024 6:11 PM 05/10/2024 10:37 PM * Full Code Date Activated Date Inactivated Comments 09/30/2023 4:24 PM 10/01/2023 2:06 PM * Full Code Date Activated Date Inactivated Comments 09/13/2023 4:35 PM 09/30/2023 2:07 PM * Full Code Date Activated Date Inactivated Comments 07/20/2023 5:43 PM 07/22/2023 8:07 AM Care Teams Boilermaker Loftsman Relationship Specialty Start [place] [address] [place] [address] PCP - General Family Medicine 11/02/23 [place] [address] [place] [address] Surgeon Cardiothoracic Surgery 10/09/24
[2025-03-29 11:27] VITALS: BP 137/66; PULSE 60; RESP 137; TEMP 36.7; O2SAT 100
[2025-03-29] MEDS: AMPICILLIN SODIUM 2 GM in SODIUM CHLORIDE 0.9% IV 100 ML 200 ML IVPB (11:35)
[2025-03-29] MEDS: GENTAMICIN 80MG/SOD CHL 50 ML 80 MG/50 ML BAG 100 MG IVPB (11:36)
--- NOTE | 2025-03-29 13:38 | PM.HPGS ---
History of Present Illness History of Present Illness Consent: Risks, benefits, and alternatives have been discussed and questions answered. Patient agrees to proceed with procedure. Chief complaint: Gastro-esophageal reflux disease without esophagit Narrative: Mila Miramontes is a 69 year old female with anemia on eliquis, denies overt gib, last colonoscopy about 20 years ago, mother had colon cancer Review of Systems Review of Systems: All systems reviewed & are unremarkable except as noted in HPI and below PMFSH Past Medical History Medical History (Updated 03/29/25 @ 13:39 by Jayme Granda MD) Family history of colon cancer in mother Anemia CHF (congestive heart failure) Hyperlipidemia Hypertension CAD (coronary artery disease) CVA (cerebral vascular accident) Surgical History Surgical History (Updated 03/29/25 @ 08:58 by Bob Engel DO) S/P AVR Mitral valve replaced History of coronary artery stent placement Hx of CABG x2, 2023 Social History Social History Smoking status: Never smoker Alcohol intake: never Substance use: never Living arrangements: with family Spiritual care concerns: No Meds Home Medications and Allergies Home Medications ?Medication ?Instructions ?Recorded ?Confirmed ?Type acetaminophen 325 mg tablet 325 mg PO ONCE PRN pain 03/15/25 03/15/25 History (Tylenol) alirocumab 75 mg/mL subcutaneous 75 mg subcut Q14D 03/15/25 03/15/25 History pen injector (Praluent Pen) amiodarone 200 mg tablet 200 mg PO Q12H 03/15/25 03/29/25 History apixaban 5 mg tablet (Eliquis) 5 mg PO Q12H 03/15/25 03/29/25 History ezetimibe 10 mg tablet 10 mg PO HS 03/15/25 03/29/25 History ferrous sulfate 325 mg (65 mg 325 mg PO BID 03/15/25 03/29/25 History iron) tablet (FeroSul) furosemide 40 mg tablet 40 mg PO DAILY 03/15/25 03/29/25 History losartan 100 mg tablet 100 mg PO DAILY 03/15/25 03/29/25 History metoprolol tartrate 25 mg tablet 12.5 mg PO Q12H 03/15/25 03/29/25 History pantoprazole 40 mg tablet,delayed 40 mg PO Q12H 03/15/25 03/29/25 History release rosuvastatin 40 mg tablet 40 mg PO HS 03/15/25 03/29/25 History Allergies Allergy/AdvReac Type Severity Reaction Status Date / Time No Known Allergies Allergy Unverified 03/15/25 15:51 Vital Signs Vital Signs - 24 hr 03/29/25 11:27 Temperature 98.1 F Pulse Rate 60 Respiratory Rate 137 H Blood Pressure 137/66 Pulse Oximetry 100 Oxygen Delivery Room Air Exam Const: General: comfortable and no acute distress HENMT: Face/Nose/Sinus: Normal nares present Eyes: General: appearance normal, both eyes and all related structures Neck: Neck: no JVD Resp: Auscultation: clear to auscultation bilaterally Cardio: Rate: regular rate Rhythm: regular rhythm GI: Inspection: non-distended GI Palp: Yes Soft to palpation Skin: General skin exam: normal color Neuro: Speech: normal speech Extrem: General: normal to inspection Psych: Mental Status: mental status grossly normal Assessment and Plan Assessment and plan (1) Anemia: Code(s): D64.9 - Anemia, unspecified Status: Acute Assessment and Plan: egd (2) Family history of colon cancer in mother: Code(s): Z80.0 - Family history of malignant neoplasm of digestive organs Status: Acute Assessment and Plan: colonoscopy
--- NOTE | 2025-03-29 14:01 | SUR.OPER ---
EGD: [id number] COLON: Start 1356
[2025-03-29] MEDS: LACTATED RINGERS 1,000 ML 150 ML IV CONT (14:02)
--- NOTE | 2025-03-29 14:03 | S_PTH ---
PATIENT: Mila Miramontes LOC: [facility]TON[facility] Gordon#:[id number] AGE/SX: 69/F ROOM: RE03/29/[address]: Jayme Granda MD : 1955 BED: DIS: 03/29/2025 SPEC #: [id number] RECD: 03/29/25 14:25 STATUS: MARJ DORANTES #: [id number] KOLTON: 03/29/25 14:[address]: Jayme Granda DEPT: [facility] Surgical RECD BY: Talia Cote ENTERED: 03/29/25 14:25 SP TYPE: Surgical OTHR DR: MANAGER CONTENT PHYSICIAN Tissues: A - Colon Polypectomy B - Colon Polypectomy Procedures: Hematoxylin and Eosin Stain Gross and Microscopic Level 4
[2025-03-29 14:06] VITALS: BP 83/51; PULSE 56; RESP 18; O2SAT 100
[2025-03-29 14:16] VITALS: BP 88/50; PULSE 59; RESP 18; O2SAT 100
[2025-03-29 14:26] VITALS: BP 108/55; PULSE 56; RESP 20; O2SAT 99
== END 2025-03-29 14:35 | disposition home or self-care (01) ==
PROVIDERS: Visit Provider Internal Medicine Gastroenterology
PROC: 0DJ08ZZ Inspection of Upper Intestinal Tract, Via Natural or Artificial Opening Endoscopic (ICD-10-PCS; CPT 45378; principal; 2025-03-29 12:30)
DX: D64.9 Anemia, unspecified (principal); D12.2 Benign neoplasm of ascending colon; D12.5 Benign neoplasm of sigmoid colon; K63.5 Polyp of colon; K64.8 Other hemorrhoids; K57.30 Diverticulosis of large intestine without perforation or abscess without bleeding; K44.9 Diaphragmatic hernia without obstruction or gangrene; K21.9 Gastro-esophageal reflux disease without esophagitis; I11.0 Hypertensive heart disease with heart failure; E78.5 Hyperlipidemia, unspecified; I25.10 Atherosclerotic heart disease of native coronary artery without angina pectoris; I63.9 Cerebral infarction, unspecified; Z79.85 Long-term (current) use of injectable non-insulin antidiabetic drugs; Z79.01 Long term (current) use of anticoagulants; Z98.890 Other specified postprocedural states; Z95.1 Presence of aortocoronary bypass graft; Z95.5 Presence of coronary angioplasty implant and graft; Z80.0 Family history of malignant neoplasm of digestive organs
CPT/HCPCS: 43235; 45385; 88305; J0290; J1580; J2003; J2704; J7120